=== PATIENT | male | born 1930 | race Caucasian/White ===

== ENCOUNTER 2021-01-21 16:55 | Emergency (ER) | payer MEDICARE, BC ==
--- NOTE | 2021-01-21 18:10 | EDM.PDOC ---
ED HPI GENERAL MEDICAL PROBLEM - General Chief Complaint: Skin Complaint Stated Complaint: RASH Time Seen by Provider: 01/21/21 17:15 Source of Information: Reports: Patient History Limitations: Reports: No Limitations - History of Present Illness INITIAL COMMENTS - FREE TEXT/NARRATIVE: Pt. presents to ER with complaints of redness, pruritus, to R posterior and lateral neck area. Pt. states that he noticed the redness yesterday. He states that it has been irritated today. He has an appointment next week, but decided to come to ER today to be safe. Pt. denies any history of shingles in the past. he has not been experiencing any fever or chills. No chest pain or shortness of breath. Denies any vision loss or change, eye redness, or discharge. Onset Date: 01/20/21 - Related Data Allergies Allergy/AdvReac Type Severity Reaction Status Date / Time No Known Allergies Allergy Verified 01/21/21 17:40 Home Meds: Home Meds Finasteride 5 mg PO DAILY 01/21/21 [History] Simvastatin [Zocor] 10 mg PO BEDTIME 01/21/21 [History] Tamsulosin [Tamsulosin 24 Hr] 0.4 mg PO DAILY 01/21/21 [History] hydrALAZINE [Apresoline] 100 mg PO Q12HR 01/21/21 [History] hydroCHLOROthiazide [Hydrochlorothiazide] 25 mg PO DAILY 01/21/21 [History] Social & Family History - Tobacco Use Tobacco Use Status *Q: Unknown Ever Used Tobacco ED ROS GENERAL - Review of Systems Review Of Systems: Comprehensive ROS is negative, except as noted in HPI. ED EXAM, SKIN/RASH Exam: See Below General Appearance: Alert, WD/WN, No Apparent Distress Eye Exam: Bilateral Eye: EOMI, Normal Fundi, Normal Inspection, PERRL Head: Atraumatic, Normocephalic Neck: Supple, Non-Tender, Full Range of Motion Skin: Warm, Dry, Other (Erythema noted to posterior and R lateral neck area, involving only the R side, and staying in what appears to be the same dermatome. No vesicles noted. ) Lymphatic: No Adenopathy Course - Vital Signs Last Recorded V/S: Last Vital Signs Temp 35.9 C L 01/21/21 17:10 Pulse 72 01/21/21 17:10 Resp 18 01/21/21 17:10 BP 142/58 H 01/21/21 17:10 Pulse Ox 98 01/21/21 17:10 Departure - Departure Time of Disposition: 18:17 Disposition: Home, Self-Care 01 Clinical Impression: Shingles - Discharge Information Instructions: Shingles, [id number], Valacyclovir caplets, Prednisone tablets Referrals: Rebecca Dale DO [Primary Care Provider] - Forms: ED Department Discharge Additional Instructions: Valacyclovir 1000mg 1 tab twice daily for 7 days Prednisone 20mg 2 tabs a day for 7 days Recheck in clinic in 1 week Sepsis Event Note (ED) - Evaluation Sepsis Screening Result: No Definite Risk - Focused Exam Vital Signs: Vital Signs Temp Pulse Resp BP Pulse Ox 01/21/21 17:10 35.9 C L 72 18 142/58 H 98 - Problem List Review Problem List Initiated/Reviewed/Updated: Yes - Assessment/Plan Plan: No vesicular lesions noted yet. This appears to be an early case of shingles. Pt. started on a renally adjusted dose of valacyclovir. He was also started on prednisone 40mg daily. Advised to recheck in clinic in a week. She should avoid contact with others. Return to ER if he notices any redness or irritation around eyes. All questions were answered.
== END 2021-01-21 17:43 | disposition home or self-care (01) ==
LOC: VM.ED 16:55
DX: B02.9 Zoster without complications (principal)
CPT/HCPCS: 99283